=== PATIENT | female | born 1960 | race Caucasian/White ===

== ENCOUNTER 2024-06-08 05:57 | Observation (INO) ==
--- NOTE | 2024-05-24 10:34 | Anesthesiology Consultation ---
Date of Service May 24, 2024 Assessment & Plan (1) Encounter for pre-operative examination: - Per melter helper on 05/24/24: No known infectious disease contacts, current infectious disease symptoms in past 10 days or COVID positive test result in the past 30 days. Chart Review Chart Review: Acceptable Risk for Surgery and Patient NOT seen in Pre Admission Testing History Surgery Operation Date: 06/08/24 09:50 Proposed Procedures p Robotic Laparoscopic Assisted Partial Nehprectomy - Elena - Tony Stahl DO Height/Weight Height: 5 ft 6 in Weight: 56.699 kg Allergies Allergy/AdvReac Type Severity Reaction Status Date / Time almond Allergy Severe TREE Verified 05/24/24 09:43 NUTS-ANAPHYLAXIS cashew nut Allergy Severe Anaphylaxis Verified 05/24/24 09:43 ciprofloxacin [Cipro] Allergy Severe Anaphylaxis Verified 05/24/24 09:43 gluten Allergy Severe celiac Verified 05/24/24 09:43 disease hydromorphone Allergy Severe Anaphylaxis Verified 05/24/24 09:43 Influenza Virus Vaccines Allergy Severe ANAPHYLAXIS Verified 05/24/24 09:43 sumatriptan [From Imitrex] Allergy Severe SOB, hives Verified 05/24/24 09:43 tree nut Allergy Severe tree Verified 05/24/24 09:43 nuts-anaphylaxis wheat Allergy Severe celiac Verified 05/24/24 09:43 disease and also get a topical rash propoxyphene Allergy Mild ? itchy Verified 05/24/24 09:43 codeine Allergy Unknown itchy once Verified 05/24/24 09:43 and has had since with no reaction ergotamine Allergy Unknown Anaphylaxis Verified 05/24/24 09:43 ketorolac [From Toradol] Allergy Unknown Hallucinati Verified 05/24/24 09:43 ng butorphanol AdvReac Unknown DELIRIUM Verified 05/24/24 09:43 Medications Home Medications Medication Instructions Recorded Confirmed Last Taken clonazepam 1 mg tablet 1 mg PO QAM #30 tabs 04/04/24 05/24/24 Unknown levothyroxine 100 mcg tablet 100 mcg PO QAM #90 tabs 05/08/24 05/24/24 Unknown epinephrine 0.3 mg/0.3 mL 0.3 mg IM UD PRN anaphylaxis 05/24/24 05/24/24 Unknown injection, auto-injector [id number] tablet 1 tab PO DAILY 05/24/24 05/24/24 Unknown spironolactone 25 mg tablet 25 - 50 mg PO BID 05/24/24 05/24/24 Unknown Past Medical History Medical History (Updated 05/24/24 @ 10:29 by Alanna Joshi PA-C) Celiac disease (12/11/12) History of colon polyps History of COVID-19 05/2022 History of eating disorder pt weighs self at home/prefers not to be weighed if possible but is okay with if needed. Does not want to know what weight is when weighed. Not active for decades. History of hypertension History of mastitis 02/2024 - has resolved but is still having issues with discharge on occ/follows Dr. Carrillo. History of posttraumatic stress disorder (PTSD) Hypothyroidism sometimes high and sometimes low. IBS (irritable bowel syndrome) Left renal mass Migraines Nonspecific low blood pressure reading always runs a lower blood pressure per pt. Panic disorder controlled at current. Past Family History Family History Grandmother (Maternal) Ovarian cancer Mother Myocardial infarction Other Family history not known due to adoption Past Surgical History Surgical History History of colonoscopy 04/2023 Repeat 5 yrs History of dilatation and curettage x5 History of endoscopy (05/23/24) 05/23/24 [facility] EUS - upcoming ERCP planned 07/2024. History of esophagogastroduodenoscopy (EGD) History of laparoscopic cholecystectomy History of wisdom tooth extraction Hx of breast reduction, elective Hx of tubal ligation Social History Smoking Status: Never smoker Do You Dip or Chew Tobacco: No Hx Alcohol Use: No (very rarely) alcohol intake frequency: holidays/special occasions only Hx Substance Use: No substance use type: does not use Lab Results Anesthesia Preop Results Results Anesthesia Widget: WBC 4.22 K/ul (4.8-10.8) L 05/16/24 Hgb 12.9 g/dl (12.0-16.0) 05/16/24 Hct 38.9 % (37.0-47.0) 05/16/24 Plt 169 K/uL (130-400) 05/16/24 Na 138 mmol/L (136-145) 05/16/24 K 4.7 mmol/L (3.5-5.1) 05/16/24 Cl 103 mmol/L (98-107) 05/16/24 CO2 32 mmol/L (21-32) 05/16/24 BUN 13 mg/dl (6-23) 05/16/24 Creat 0.70 mg/dl (0.6-1.2) 05/16/24 Glucose Level 129 mg/dl (70-99(Fasting)) H 05/16/24 Testing Electrocardiogram Date: 05/16/24 Sinus bradycardia, rate 55 bpm Chest X-Ray Date: 05/05/24 *1view* No acute chest disease. Stress Test Date: 09/29/21 METS 7 MPHR 89% Normal stress echo EF 55-60% Mild mitral regurgitation Other Testing Abdomen pelvis CT 03/20/24 1. Moderate intra and extra hepatic bile duct dilatation. Some of this could be related to the patient's post cholecystectomy state. However, ERCP follow-up recommended to exclude the possibility of an occult stricture/lesion of the distal common bile duct. Of note, the distal common bile duct and pancreatic head are not well visualized on this study due to the motion artifact. 2. A 2.5 cm lesion within the left kidney which is suspicious for a solid renal mass. Dedicated renal ultrasound recommended for confirmation. 3. Moderate fecal retention. 4. No bowel wall thickening or obstruction.
[2024-06-08] MEDS: LR 15ML/HR IV SCH (06:19)
[2024-06-08] MEDS ORDERED: ATROPINE SULFATE 0.1 MG/ML 10ML SYR IV PRN ×2 (06:50→07:54)
[2024-06-08] MEDS ORDERED: ePHEDrine sulfate 50 MG/ML AMP IV PRN ×2 (06:50→07:54)
[2024-06-08] MEDS ORDERED: MIDAZOLAM HCL 1 MG/ML 2ML VIAL ONE (07:03)
[2024-06-08] MEDS ORDERED: fentaNYL citrate PF 100 MCG/2 ML VIAL ONE (07:03)
[2024-06-08] MEDS ORDERED: DEXAMETHASONE SOD INJ 4 MG/ML VIAL ONE (07:03)
[2024-06-08] MEDS ORDERED: LIDOCAINE 2% 2 ML VIAL/AMP(20MG/ML) INFIL ONE (07:03)
[2024-06-08] MEDS ORDERED: ONDANSETRON INJ 2 MG/ML 2 ML VIAL ONE (07:03)
[2024-06-08] MEDS ORDERED: PROPOFOL IV EMULSION 10 MG/ML 20 ML VIAL IV ONE (07:03)
--- NOTE | 2024-06-08 07:05 | History & Physical Bridge Note ---
Date of Service June 08, 2024 History & Physical Bridge Note I have examined the patient, reviewed the History & Physical and in the interval since the performance of the History & Physical I have noted the following changes of clinical significance: no changes noted
[2024-06-08] MEDS ORDERED: SUGAMMADEX SODIUM 200 MG/2 ML VIAL IV ONE (07:06)
[2024-06-08] MEDS ORDERED: ONDANSETRON INJ 2 MG/ML 2 ML VIAL IV PRN (07:54)
[2024-06-08] MEDS ORDERED: fentaNYL citrate PF 100 MCG/2 ML VIAL IV PRN (07:54)
[2024-06-08] MEDS ORDERED: ePHEDrine sulfate 50 MG/5 ML SYR ONE (08:08)
[2024-06-08] MEDS: ceFAZolin 2000MG 2,000 MG/15 ML SYR IV SCH (08:09)
[2024-06-08] MEDS ORDERED: ROCURONIUM BROMIDE 10 MG/ML 5 ML VIAL IV ONE ×2 (08:09→10:05)
[2024-06-08] MEDS ORDERED: KETAMINE HCL 10MG/ML SYR ONE (10:06)
[2024-06-08] MEDS ORDERED: ePHEDrine sulfate 50 MG/ML AMP ONE (10:21)
[2024-06-08] MEDS: TISSEEL FIBRIN SEALANT 10ML TOP ONE (10:37)
[2024-06-08] MEDS: FLOSEAL HEMOSTATIC MATRIX 10ML TOP ONE (10:37)
[2024-06-08] MEDS: SURGICEL ABSORB HEMOSTAT 2IN X 14IN TOP ONE (10:37)
[2024-06-08] MEDS: BUPIVACAINE 0.5 % 5 MG/1 ML MPF 30ML VIAL ONE (10:58)
--- NOTE | 2024-06-08 11:21 | Operative Report ---
PG Post Operative Report Pre & Post Diagnosis Operation Date: 06/08/24 07:30 Pre-Op Diagnosis: Left Renal Mass Post-Op Diagnosis: Left Renal Mass I identified the patient and participated in the time-out.: Yes Procedure Operation Date: 06/08/24 07:30 Actual Procedures p Robotic assisted laparoscopic left partial nephrectomy converted to radical nephrectomy- left(Left) - Tony Stahl DO Surgeon Tony Stahl, II, DO Load Builder Ayan Funes MD. Harriett RUEDA Estimated Blood Loss 450 Findings Consistent with Post-Op Diagnosis Upper pole renal mass on left within the renal hilum with suspicion for malignancy. Mass was removed by partial nephrectomy but renal artery found to be involved with persistent bleeding after closure. Converted to radical nephrectomy due to artery involvement. Specimens 1. Left Renal mass. 2. Left Radical Kidney Drains 18 Fr Carranza catheter. Anesthesia Type General Complications none Disposition Disposition: Recovery Room Indications Patient with enhancing left renal mass. Risk and benefits were discussed at length. Patient elected to undergo robotic assisted laparoscopic partial nephrectomy due to location within the hilum possible radical nephrectomy. Description of Procedure The patient was brought to the operative suite and placed under general endotracheal intubation anesthesia in the supine position. The patient was transferred to the lateral position with the operative side up. At this point, the patient prepped and draped in the usual sterile fashion and a timeout was completed. Preoperative antibiotics of Ancef 2 grams had been given. PEACE's and SCD's were placed on the patient's lower extremities. A catheter was placed using sterile technique. A skin cyst had young noted on the lower portion of the chest. This was covered with a sterile dressing to insure the sterile field remained uncontaminated. With the time out completed the patient was flexed and the skin was marked. The lateral camera port site was anesthetized. A small incision was made into the skin and subcutaneous tissues. A Varess needle was selected and placed. The needle was easily moved and it was irrigated and aspirated without any issues or concerns for placement. Insufflation commenced. Once insufflated, A camera port was placed. The cavity was insufflated to 12-15 mmHG. A laparoscopic camera was placed and the abdominal cavity inspected. No bleeding, injury, or other concerning features were noted. At this point, the skin was marked for port placement and 8mm working ports were placed. The skin was anesthetized down to fascia and an approx 1cm incision was made to place the 2 x 8mm ports. Two 12 mm executive assistant to general counsel ports were also placed in similar fashion under direct visualization. The robot was positioned and docked. The camera was placed and all trocars were positioned under direct visualization. Harriett Montez was integral in port placement, camera utilization, and docking procedure. She remained in sterile attire and then proceeded to assist the remainder of the case. Dr. Ayan Funes was readily available for assistance during tinsley portions of the proceeding procedure. Dr. Funes assumed the porcelain buildup assistant role for the major portion of mass removal, vessel clamping, and closure of the kidney. He assisted with the conversion of the procedure to a radical nephrectomy and utilized the stapling device to ligation of the renal vessels. At this point, I transitioned to the robotic console. The colon was mobilized medially to expose the retroperitoneum and the area assessed. Adhesions were freed to allow mobilization. A small amount of adhesions were noted from the colon and were freed. These were dissected with blunt technique. Cautery was used to assist dissection and control bleeding. The retroperitoneal fat was assessed. The ureter and gonadal vein were identified. The ureter was isolated and dissection was taken superiorly. This was followed to the renal pelvis. The Renal Artery and Vein were then cleaned and exposed. Clamp placement was assessed and good access was achieved. The perirenal fat anterior to the kidney was then dissected. The mass and surrounding tissues were exposed. The kidney was then further mobilized. The ultrasound probe was placed and the mass further examined. The edges were marked. The mass was found to be within the hilum with close proximity to the renal vessels. The main renal artery especially appeared close to the mass location. A superior branch of the renal vein appeared to also go directly to the mass. It did appear concerning that the vessels may be involved with the mass but without further dissection it was impossible to know if they were directly involved. At this point it was decided to move forward with the partial nephrectomy with possible conversion if bleeding or vessel involvement was noted. The Vessels were assessed a final time. 1 x Bulldog clamps were placed on the artery and 1 x Bulldog clamp on the vein. The kidney appropriately blanched. The previously marked margins were used to start the incision into the kidney. The mass was completely excised without evidence of penetrating into the capsule of the mass. A portion of the superior branch of the renal vein had to be incised to excise the mass but no major bleeding was noted. This was closed with a 4-0 Prolene figure of 8 stitch. The base of resection bed was assessed and small vessels were cauterized. The collecting system did appear to be closed. The Renal vein incision was closed without issue. No major bleeding was noted. A barbed suture was selected and the nephrotomy closed. Care was taken to close the collecting system opening. 3-0 Vicryl sutures were then used to close the edges of the elliptical opening. A total of 3 vicryl sutures were used to close and bolster the edges. At this point, the bulldog clamps were removed. Warm ischemia time, in total, was 18 minutes. The kidney was full assessed after removal of clamps. Bleeding was noted. The renal vein was assessed and found to be closed without issue. Bleeding appeared to be coming from the renal artery with the location coming directly off the area excised. A 4-0 prolene stitch was attempted to closed the area and the hemolock clips were also tightened to further close the nephrotomy. With pressure on the vessels. The bleeding was controlled but would immediately begin again. The location and bleeding were concerning for the renal artery and though bleeding was not severe, the attempts to further close the area did not improve the persistent bleeding. After further inspection due to the location and the likely renal artery concern, it was decided to convert the case to radical nephrectomy. Bleeding was not severe but was persistent and did not improved with further closure. Due to location, clipping or ligating a branch of the artery did not appear to be possible. The vessels were isolated. A Endo Stapler with vascular loads were selected and 2 x real were placed accross the renal vein and artery. The vessels were ligated and cut. No bleeding or major problems. No severe bleeding was noted. Surgicel hemostatic agent sheets were placed under the spleen and on the incised vessels. Tisseel and Floseal Hemostatic agents were also placed. Hemostatic agent was also placed on the vessel stumps. No major bleeding or other issues. The excised mass was placed in an endocatch bag for removal. The ureter was then ligated and stapled to completely free the kidney. The entire dissection space was inspected one final time. No bleeding or injuries or areas of concern were noted. No tumor or other concerning features were noted. At this point, the robot was undocked and moved away from the patient. The port sites were all assessed laparoscopically. The endoscopic bag was moved into the lower executive assistant to general counsel port. The 12 and 12 mm port sites were closed with the Miguel Huerta device. The other ports were assessed and no issues observed. The inferior robotic port incision was opened further exposing fascia which was then opened in order to removed the mass within the bag. The the mass removed the fascia was then further opened and the radical kidney was grasped and removed. A running 1-0 PDS suture was used to close fascia. A running 2-0 Vicryl was used to close the subcutaneous tissues. The skin at each site was closed with a stapling device. The area was cleaned and bandages placed on each incision. The patient was cleaned and bandaged. The patient was moved back into the supine position The patient was cleaned, aroused from anesthesia, and transferred to the pacu in stable condition having tolerated the procedure well with no complications. I was present and participated in all aspects of the procedure. MD Marin was integral in the major portion of the procedure as above. MARYBETH Omer was critical in the portions as mentioned above. Will plan to observe postoperatively and monitor. Carranza to be removed in the morning. I attest to the content of the Intraoperative Record and any orders documented therein. Any exceptions are noted below.
[2024-06-08] MEDS: ONDANSETRON INJ 2 MG/ML 2 ML VIAL IV PRN (11:32)
[2024-06-08] MEDS: fentaNYL citrate PF 100 MCG/2 ML VIAL IV PRN (11:35)
[2024-06-08 11:55] LABS: BUN Creatinine Ratio 22.8 (10-20); Calcium 9.6 mg/dl (8.6-10.3); Creatinine Clr Calc Pharmacy 67.3 ml/min; Est GFR (African American) 91.7 ml/min; Est GFR (Non-African American) 79.1 ml/min; Potassium 3.7 mmol/L (3.5-5.1)
[2024-06-08 12:01] LABS: Basophils # (auto) 0.02 K/uL (0.00-0.20); Basophils % (auto) 0.2 %; Hematocrit (blood only) 33.9 % (37.0-47.0); Hemoglobin 11.5 g/dl (12.0-16.0); Immature Granulocytes # (auto) 0.03 K/uL (0.01-0.20); Immature Granulocytes % (auto) 0.4 %; Lymphocytes # (auto) 0.47 K/uL (1.20-3.40); Lymphocytes % (auto) 5.5 %; Mean Corpuscular Hemoglobin 31.3 pg (25.0-34.0); Mean Corpuscular Hgb Conc 33.9 g/dL (32.0-36.0); Mean Corpuscular Volume 92.4 fL (80.0-100.0); Mean Platelet Volume 11.3 fL (9.4-12.4); Monocytes # (auto) 0.19 K/uL (0.11-0.59); Monocytes % (auto) 2.2 %; Neutrophils # (auto) 7.86 K/uL (1.40-6.50); Neutrophils % (auto) 91.7 %; Platelet Count 117 K/uL (130-400); RDW Coefficient of Variation 12.5 % (11.5-14.5); RDW Standard Deviation 42.5 fL (36.4-46.3); Red Blood Count 3.67 M/uL (4.20-5.40); White Blood Count 8.57 K/ul (4.8-10.8)
--- NOTE | 2024-06-08 12:02 | Anesthesiology Progress Note ---
Date of Service June 08, 2024 Anesthesia Post Procedure Vital Signs Vital Signs: Temp Pulse Pulse Resp BP Pulse Ox O2 Del Method 06/08/24 12:00 70 20 104/53 L 100 Room Air 06/08/24 11:50 36.3 C L 60 16 112/57 L 100 Room Air 06/08/24 11:40 63 14 116/59 L 100 Nasal Cannula 06/08/24 11:30 68 20 119/64 100 Nasal Cannula 06/08/24 11:22 36.1 C L 71 14 116/60 100 Nasal Cannula 06/08/24 06:40 36.6 C 64 20 133/76 99 Room Air O2 Flow Rate 06/08/24 12:00 06/08/24 11:50 06/08/24 11:40 2 06/08/24 11:30 4 06/08/24 11:22 4 06/08/24 06:40 Pain Intensity Abdomen: Pain Intensity: 3 Transfer of Care Handoff Completed per policy Notes Mental Status: alert / awake / arousable and participated in evaluation Patient Amnestic to Procedure: Yes Nausea / Vomiting: adequately controlled Pain: adequately controlled Airway Patency, RR, SpO2: stable & adequate BP & HR: stable & adequate Hydration State: stable & adequate Anesthetic Complications: no major complications apparent and Pt Satisfied with anesthetic care
[2024-06-08] MEDS ORDERED: oxyCODONE HCL IR 5 MG TAB (IMMEDIATE RELEASE) PO PRN (12:25)
--- NOTE | 2024-06-08 12:34 | Hospitalist Consultation ---
Date of Consultation June 08, 2024 Assessment & Plan (1) S/p nephrectomy: S/p left radical nephrectomy with Dr. Stahl on 06/08/24 Perioperative antibiotics, pain control, and DVT PPx per the primary team Per review of operative note, EBL was listed as 450 cc; Hgb 11.5 postop; will continue to monitor with a.m. labs Agree with a.m. CBC, BMP; will continue to follow (2) Hypotension: Patient's BP has been soft postop; 106/53 at time of consult Not currently on HTN medications Will plan to hold spironolactone for now until hypotension resolves LR 500mL bolus given Will switch NSS --> LR at 100mL/hr (3) Hypothyroidism: Continue levothyroxine Plan Agree with current medical decision making. Disposition: MedSurg Clear liquid diet for now VTE PX: SCDs/teds Thank you for allowing us to participate in the care of this patient, please reach out with any questions or concerns; we will continue to follow. Supervising Physician Co-Signing Physician Notes Chart reviewed, case discussed with Aleks Goodrich PA-C and I agree with the assessment and plan as above except as otherwise noted Labs and images reviewed 63-year-old female with a history of hypertension, hypothyroidism, PTSD/panic disorder, IBS, who presents for scheduled robot-assisted left partial nephrectomy for left renal mass which was converted to radical left nephrectomy. Operative note reviewed. Masses removed with partial nephrectomy but renal artery found to be involved with persistent bleeding after closure was converted to radical nephrectomy. 4 50 cc estimated blood loss. Doing well with appropriate postoperative pain at bedside. BP ranging 106/531 19/64 postop, borderline hypotension at bedside. She is not tachycardic. No history of CHF. 500 cc LR bolus given and maintenance fluids continued. Hemoglobin trended. Preop hemoglobin 12.9, postop 11.5 no indication for transfusion at time of assessment. Spironolactone held for borderline hypotension. Continue Synthroid. Daily clonazepam continued, history of panic attacks/PTSD and risks of abruptly holding outweigh benefits. Doing well postop. Reports that she has some diffuse pain in the abdomen but this is gradually improving since surgery. On exam abdomen is soft without rebound/involuntary guarding. Answers questions appropriately. Has some irritation of her left eye, no exam no injection irritation or abrasions noted. Offered fluorescein exam with [place] lamp, patient notes this is slowly getting better but if he gets worse will readjust with provider appreciated offered. No other questions or concerns at bedside visitAgree with above. History of Present Illness Reason for Consultation: Postop medical management Requesting Physician: Tony Stahl II, DO Attending Physician: Tony Stahl II, DO History of Present Illness Janell is a 63-year-old female with PMH of HTN, hypothyroidism, PTSD, panic disorder, IBS, and left renal mass. She presented for a left partial nephrectomy converted to radical nephrectomy with Dr. Tony Stahl on 06/08. Per review of operative report, EBL was listed as 450 cc, general anesthesia was used, and there were no reported intraoperative complications. Renal mass was removed for suspected malignancy. Per review of patient's vitals postop she has been mildly hypotensive around 106/53 at time of consult. At time of consult, patient does endorse both generalized abdominal pain and lower back pain. She says the abdominal pain is mainly below her umbilicus but also around her laparoscopic incision sites. She is she describes the pain as both sharp and dull, and is a constant pain that is around 6/10. The pain radiates to her lower back. She has not been up since the surgery, so she has not tried eating or drinking yet. She does not use supplemental oxygen at baseline. No CPAP at night. She denies smoking, tobacco use, or recent alcohol use. Patient took all of her regular morning medications today; no recent change in medications. She takes spironolactone as an engine elzbieta for acne and to promote hair growth. She has no new concerns at this time. ROS: Patient endorses generalized abdominal pain, lower back pain, dry cough, and sore throat. Patient denies fever, chills, sweats, dizziness, lightheadedness, headache, chest pain, chest pressure, SOB, pleuritic CP, N/V/D, saddle anesthesia, or numbness or tingling going down the legs. Allergies Allergy/AdvReac Type Severity Reaction Status Date / Time almond Allergy Severe TREE Verified 06/08/24 06:15 NUTS-ANAPHYLAXIS cashew nut Allergy Severe Anaphylaxis Verified 06/08/24 06:15 ciprofloxacin [Cipro] Allergy Severe Anaphylaxis Verified 06/08/24 06:15 gluten Allergy Severe celiac Verified 06/08/24 06:15 disease hydromorphone Allergy Severe Anaphylaxis Verified 06/08/24 06:15 Influenza Virus Vaccines Allergy Severe ANAPHYLAXIS Verified 06/08/24 06:15 sumatriptan [From Imitrex] Allergy Severe SOB, hives Verified 06/08/24 06:15 tree nut Allergy Severe tree Verified 06/08/24 06:15 nuts-anaphylaxis wheat Allergy Severe celiac Verified 06/08/24 06:15 disease and also get a topical rash propoxyphene Allergy Mild ? itchy Verified 06/08/24 06:15 codeine Allergy Unknown itchy once Verified 06/08/24 06:15 and has had since with no reaction ergotamine Allergy Unknown Anaphylaxis Verified 06/08/24 06:15 ketorolac [From Toradol] Allergy Unknown Hallucinati Verified 06/08/24 06:15 ng butorphanol AdvReac Unknown DELIRIUM Verified 06/08/24 06:15 Home Medications Medication Instructions Recorded Confirmed Type clonazepam 1 mg tablet 1 mg PO QAM #30 tabs 04/04/24 06/08/24 Rx levothyroxine 100 mcg tablet 100 mcg PO QAM #90 tabs 05/08/24 06/08/24 Rx epinephrine 0.3 mg/0.3 mL 0.3 mg IM UD PRN anaphylaxis 05/24/24 06/08/24 History injection, auto-injector akpbnigvlfla-tiftnzrj-apjejc tablet 1 tab PO DAILY 05/24/24 06/08/24 History spironolactone 25 mg tablet 25 - 50 mg PO BID 05/24/24 06/08/24 History Patient History Medical History (Updated 06/08/24 @ 12:35 by Aleks Goodrich PA-C) Panic disorder controlled at current. History of posttraumatic stress disorder (PTSD) Migraines Nonspecific low blood pressure reading always runs a lower blood pressure per pt. History of hypertension History of mastitis 02/2024 - has resolved but is still having issues with discharge on occ/follows Dr. Carrillo. IBS (irritable bowel syndrome) Left renal mass History of eating disorder pt weighs self at home/prefers not to be weighed if possible but is okay with if needed. Does not want to know what weight is when weighed. Not active for decades. Hypothyroidism sometimes high and sometimes low. History of colon polyps Celiac disease (12/11/12) History of COVID-19 05/2022 Surgical History History of laparoscopic cholecystectomy History of endoscopy (05/23/24) 05/23/24 [facility] - upcoming ERCP planned 07/2024. History of dilatation and curettage x5 History of colonoscopy 04/2023 Repeat 5 yrs History of esophagogastroduodenoscopy (EGD) History of wisdom tooth extraction Hx of breast reduction, elective Hx of tubal ligation Family History Grandmother (Maternal) Ovarian cancer Mother Myocardial infarction Other Family history not known due to adoption Social History Smoking Status: Never smoker Second Hand Exposure: No; Do You Dip or Chew Tobacco: No; Hx Alcohol Use: No Hx Substance Use: No Preferred Language: Mongolian Communication Ability: Effective Visual Impairment: Partially Limited Hearing Ability: Normal Brass Polisher Required: No Beliefs That Will Affect Care: None marital status: Current Living Situation: Spouse and Parent Current Living Situation Comment: lives with and mom (is primary caregiver for 90yr old mom) current occupational status: employed 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 How many Children do You have: 3 Other Information That Helps Us Care for You: No Feels Safe at Home: Yes Childhood Exposure to Second-Hand Smoke: Yes Diet: gluten free and vegan caffeine: Yes Dental Care, Regularly: Yes Physical Activity Frequency: Daily Seatbelt Use: always Sunscreen Use: Yes Assistive Devices: Other Assistive Devices Comment: reading glasses Review of Systems Review of Systems: See HPI above Physical Exam Physical Exam: General: Mild physical distress secondary to abdominal and lower back pain; pleasant affect; non-toxic appearing; well-nourished; cooperative; SpO2 99% on RA HEENT: normocephalic, atraumatic; no scleral icterus; PERRLA; vision and hearing grossly intact Neck: supple; no lymphadenopathy; trachea midline Skin: warm, dry without signs of tenting; no cyanosis; no rashes, bruising, lesions, or erythema noted CV: chest wall NTP; RRR; S1/S2 normal; no murmurs/rubs/gallops; pulses intact and symmetric at radial, DP, and PT Lungs: no acute respiratory distress; symmetrical chest wall expansion; clear breath sounds across all lung murphy w/o adventitious sounds; no wheezing ABD: Laparoscopic incision sites are cleanly dressed without signs of drainage, erythema, or infection present; her abdomen is mildly TTP around the incision sites; flanks are NTP; BS present; no rebound/guarding; no distention Back: Lower spine is mildly TTP; negative CVA tenderness, or lower back tenderness to palpation : Carranza draining clear yellow urine MSK: no tics or fasciculations; no edema noted in the LEs b/l, nonerythematous; patient demonstrates ability to wiggle toes bilaterally Neuro: A&Ox3; normal mood and affect; fluent speech; no focal deficits; sensation grossly intact in the LEs b/l Results & Data Results & Data Vital Signs (Past 12 Hours) Vital Signs Temp Pulse Pulse Resp BP Pulse Ox O2 Del Method 06/08/24 12:10 72 20 106/53 L 100 Room Air 06/08/24 12:00 70 20 104/53 L 100 Room Air 06/08/24 11:50 36.3 C L 60 16 112/57 L 100 Room Air 06/08/24 11:40 63 14 116/59 L 100 Nasal Cannula 06/08/24 11:30 68 20 119/64 100 Nasal Cannula 06/08/24 11:22 36.1 C L 71 14 116/60 100 Nasal Cannula 06/08/24 06:40 36.6 C 64 20 133/76 99 Room Air O2 Flow Rate 06/08/24 12:10 06/08/24 12:00 06/08/24 11:50 06/08/24 11:40 2 06/08/24 11:30 4 06/08/24 11:22 4 06/08/24 06:40 Laboratory Results Abnormal lab results 06/08/24 Range/Units 11:24 RBC 3.67 L (4.20-5.40) M/uL Hgb 11.5 L (12.0-16.0) g/dl Hct 33.9 L (37.0-47.0) % Plt Count 117 L (130-400) K/uL Neut # (Auto) 7.86 H (1.40-6.50) K/uL Lymph # (Auto) 0.47 L (1.20-3.40) K/uL BUN/Creatinine Ratio 22.8 H (10-20) Glucose 156 H (70-99(Fasting)) mg/dl PG Care Time/CCT Total # of Minutes Spent Total Time Spent with Patient: Total time spent is greater than 50% in coordination of care (as documented) at patient's floor/unit and/or counseling patient: [place] [address] IN/OBS CONSULT LVL 3,45M Patient Type New Medical Decision Making Moderate Complexity Diagnoses S/p nephrectomy Z90.5 Hypotension I95.9 Hypothyroidism E03.9
[2024-06-08] MEDS: SODIUM CHLORIDE 0.9% 1,000 ML IV SCH (12:43)
[2024-06-08] MEDS ORDERED: EPINEPHrine INJ 1 MG/ML AMP IM PRN (12:48)
[2024-06-08] MEDS: LACTATED RINGER'S 500 ML IV ONE (13:24)
[2024-06-08] MEDS: oxyCODONE HCL IR 5 MG TAB (IMMEDIATE RELEASE) PO PRN (13:30)
[2024-06-08] MEDS: LACTATED RINGER'S 1,000 ML IV SCH (14:10)
[2024-06-08] MEDS: ACETAMINOPHEN 325 MG TAB PO SCH (14:21)
[2024-06-08] MEDS: ONDANSETRON INJ 2 MG/ML 2 ML VIAL IV STA (16:04)
[2024-06-08] MEDS: MoRPHine SULFATE 2 MG/ML CARP IV PRN (16:20)
[2024-06-08] MEDS: ceFAZolin 1000MG 1,000 MG/7.5 ML SYR IV SCH (17:06)
[2024-06-08] MEDS: ONDANSETRON 4 MG OD TAB PO PRN (20:55)
[2024-06-08] MEDS ORDERED: SPIRONOLACTONE 25 MG TAB PO SCH (21:00)
[2024-06-08] MEDS: DOCUSATE SODIUM 100 MG CAP PO SCH (21:39)
[2024-06-08] MEDS ORDERED: Nursing to Pharmacy Communication SCH (23:15)
[2024-06-09] MEDS ORDERED: SPIRONOLACTONE 25 MG TAB PO SCH (09:00)
[2024-06-09] MEDS: clonazePAM 1 MG TAB PO SCH (14:46)
[2024-06-09] MEDS: LEVOTHYROXINE SODIUM 100 MCG TABLET PO SCH (14:46)
[2024-06-09] MEDS: METOCLOPRAMIDE HCL INJ 5 MG/ML 2 ML VIAL IV ONE (14:46)
[2024-06-09 18:36] LABS: Albumin Globulin Ratio 1.7 (0.9-2); Albumin Level 3.3 gm/dl (3.4-5.0); BUN Creatinine Ratio 19.5 (10-20); Calcium 9.4 mg/dl (8.6-10.3); Creatinine Clr Calc Pharmacy 47.2 ml/min; Est GFR (African American) 59.5 ml/min; Est GFR (Non-African American) 51.3 ml/min; Total Protein 5.3 gm/dl (6.0-8.3)
[2024-06-09] MEDS: HEPARIN SOD 5,000 UNIT/0.5 ML VIAL SC SCH (21:08)
[2024-06-09] MEDS: MoRPHine SULFATE 4 MG/ML 1 ML CARP\\VIAL IV PRN (21:38)
[2024-06-10 01:02] LABS: Basophils # (auto) 0.01 K/uL (0.00-0.20); Basophils % (auto) 0.1 %; Hematocrit (blood only) 30.2 % (37.0-47.0); Hemoglobin 9.5 g/dl (12.0-16.0); Immature Granulocytes # (auto) 0.05 K/uL (0.01-0.20); Immature Granulocytes % (auto) 0.4 %; Lymphocytes % (auto) 5.3 %; Mean Corpuscular Hemoglobin 31.1 pg (25.0-34.0); Mean Corpuscular Hgb Conc 31.5 g/dL (32.0-36.0); Mean Platelet Volume 12.3 fL (9.4-12.4); Monocytes # (auto) 0.89 K/uL (0.11-0.59); Monocytes % (auto) 6.8 %; Neutrophils # (auto) 11.48 K/uL (1.40-6.50); Neutrophils % (auto) 87.4 %; Platelet Count 133 K/uL (130-400); RDW Coefficient of Variation 12.9 % (11.5-14.5); RDW Standard Deviation 46.3 fL (36.4-46.3); Red Blood Count 3.05 M/uL (4.20-5.40); White Blood Count 13.13 K/ul (4.8-10.8)
[2024-06-10 06:23] LABS: BUN Creatinine Ratio 18.3 (10-20); Calcium 9.2 mg/dl (8.6-10.3); Creatinine Clr Calc Pharmacy 48.9 ml/min; Est GFR (African American) 62.1 ml/min; Est GFR (Non-African American) 53.6 ml/min; Potassium 4.1 mmol/L (3.5-5.1)
[2024-06-10 06:49] LABS: Basophils # (auto) 0.01 K/uL (0.00-0.20); Basophils % (auto) 0.1 %; Eosinophils # (auto) 0.01 K/uL (0.00-0.50); Eosinophils % (auto) 0.1 %; Hematocrit (blood only) 28.9 % (37.0-47.0); Hemoglobin 9.5 g/dl (12.0-16.0); Immature Granulocytes # (auto) 0.01 K/uL (0.01-0.20); Immature Granulocytes % (auto) 0.1 %; Lymphocytes # (auto) 1.17 K/uL (1.20-3.40); Lymphocytes % (auto) 17.2 %; Mean Corpuscular Hgb Conc 32.9 g/dL (32.0-36.0); Mean Corpuscular Volume 94.4 fL (80.0-100.0); Mean Platelet Volume 12.4 fL (9.4-12.4); Monocytes # (auto) 0.56 K/uL (0.11-0.59); Monocytes % (auto) 8.2 %; Neutrophils # (auto) 5.04 K/uL (1.40-6.50); Neutrophils % (auto) 74.3 %; Platelet Count 101 K/uL (130-400); RDW Coefficient of Variation 12.8 % (11.5-14.5); RDW Standard Deviation 44.1 fL (36.4-46.3); Red Blood Count 3.06 M/uL (4.20-5.40)
--- NOTE | 2024-06-10 06:51 | Urology Progress Note ---
Date of Service June 10, 2024 Assessment & Plan (1) Left renal mass: (2) S/p nephrectomy: Plan Patient postop day 2 status post left radical nephrectomy. Patient had small renal mass involving the renal hilum. Patient had begun his robot-assisted laparoscopic partial nephrectomy. Mass was able to be removed however due to the close proximity involvement near the renal vessels especially the renal artery there was concern about small but persistent bleeding after closure. Due to the ongoing issues and concern for issues related to the location of the mass the patient was converted to a radical nephrectomy. Patient has been healing. Vitals have remained stable. Has been dealing with some mild borderline hypotension. Otherwise vitals are stable. No fever. Oxygen saturation was 90% on room air. Patient's labs from today were reviewed. White count 6.80. Creatinine 1.09. Plan to continue with observation. Patient is slowly improving. Has not had return of bowel function. Encourage ambulation and activity. Encourage patient to utilize incentive spirometer. Encourage patient to slowly increase diet with small frequent meals. Admission and Anticipated Discharge Date Admission Date: June 08, 2024 Subjective Postop from urologic surgery. Patient has been tolerating well, but is having some pain and discomfort. Incisions have been mild sore. Having some abdominal distension/gas pains. Catheter was removed yesterday. Has not had severe pain or uncontrollable pain. Patient has been ambulating. Has not had bowel movement or major change. No new nausea or vomiting. Had tolerated anesthesia without major problems Tolerated liquid diet postoperatively. Was able to advance as tolerated Review of Systems Review of Systems: All systems reviewed & are unremarkable except as noted in HPI & below Physical Exam Physical Exam: General: Alert in no acute distress. HEENT: Normocephalic Atraumatic. Inspection normal. Cranial Nerves 2-12 Gr ossly intact. Normal inspection of face. Normal inspection of neck. Psychologic: Normal affect. Respiratory: Nonlabored. No use of accessory muscles. No tachypnea or dyspnea. Cardiovascular: No tachycardia Skin: [place] and Dry. No rashes or visible lesions. Extremities/Lymphatics: No edema Abdomen: Appropriately tender. Mild distended. No rebound or guarding. Wound: Clean, dry, covered. Results & Data Vital Signs (Past 12 Hours) Vital Signs Temp Pulse Resp BP Pulse Ox O2 Del Method 06/09/24 21:57 36.8 C 55 L 15 104/60 90 Room Air PG Care Time/CCT Total # of Minutes Spent Total Time Spent with Patient: Total time spent is greater than 50% in coordination of care (as documented) at patient's floor/unit and/or counseling patient: Coding Level of Care Code 02509 SUB INP/OBS CARE 3/50MIN Diagnoses Left renal mass N28.89 S/p nephrectomy Z90.5
[2024-06-10] MEDS: POLYETHYLENE (MIRALAX) 17 GM PACK PO SCH (11:24)
--- NOTE | 2024-06-10 17:15 | Hospitalist Progress Note ---
Date of Service June 10, 2024 Assessment & Plan (1) S/p nephrectomy: Plan RCC s/p radical nephrectomy Management per Urology Constipation Bowel regimen - added miralx Hypothyroid - cont Levothyroxine OOB as tolerated DVT Px Admission and Anticipated Discharge Date Admission Date: June 08, 2024 Subjective pain controlled, nausea better but still poor appetite, no BM yet Physical Exam Physical Exam: Appears fatigued bvut comfortable, non toxic Lungs clear to auscultation bilaterally Heart RRR PA Soft, postop tenderness, ND, BS+ Skin no rash Results & Data Results & Data Vital Signs (Past 12 Hours) Vital Signs Temp Pulse Resp BP Pulse Ox O2 Del Method 06/10/24 14:35 36.7 C 59 L 17 111/67 93 Room Air 06/10/24 07:52 36.7 C 57 L 16 123/72 96 Room Air Reviewed PG Care Time/CCT Total # of Minutes Spent Total Time Spent with Patient: Total time spent is greater than 50% in coordination of care (as documented) at patient's floor/unit and/or counseling patient: Coding Level of Care Code 64513 SUB INP/OBS CARE 2/35MIN Diagnoses S/p nephrectomy Z90.5
[2024-06-11 05:55] LABS: Basophils # (auto) 0.03 K/uL (0.00-0.20); Basophils % (auto) 0.6 %; Eosinophils # (auto) 0.05 K/uL (0.00-0.50); Eosinophils % (auto) 0.9 %; Hematocrit (blood only) 30.3 % (37.0-47.0); Immature Granulocytes # (auto) 0.01 K/uL (0.01-0.20); Immature Granulocytes % (auto) 0.2 %; Lymphocytes # (auto) 0.87 K/uL (1.20-3.40); Lymphocytes % (auto) 16.1 %; Mean Corpuscular Hemoglobin 31.5 pg (25.0-34.0); Mean Corpuscular Volume 95.6 fL (80.0-100.0); Mean Platelet Volume 12.3 fL (9.4-12.4); Monocytes # (auto) 0.47 K/uL (0.11-0.59); Monocytes % (auto) 8.7 %; Neutrophils # (auto) 3.99 K/uL (1.40-6.50); Neutrophils % (auto) 73.5 %; Platelet Count 102 K/uL (130-400); RDW Coefficient of Variation 12.8 % (11.5-14.5); RDW Standard Deviation 45.1 fL (36.4-46.3); Red Blood Count 3.17 M/uL (4.20-5.40); White Blood Count 5.42 K/ul (4.8-10.8)
[2024-06-11 06:06] LABS: BUN Creatinine Ratio 15.8 (10-20); Calcium 9.6 mg/dl (8.6-10.3); Creatinine Clr Calc Pharmacy 52.8 ml/min; Est GFR (African American) 68.1 ml/min; Est GFR (Non-African American) 58.8 ml/min; Potassium 4.5 mmol/L (3.5-5.1)
--- NOTE | 2024-06-11 13:11 | Hospitalist Progress Note ---
Date of Service June 11, 2024 Assessment & Plan (1) S/p nephrectomy: Plan RCC s/p radical nephrectomy Management per Urology Constipation Bowel regimen - added miralx, continue Hypothyroid - cont Levothyroxine OOB as tolerated DVT Px Discharge plan per Urology Admission and Anticipated Discharge Date Admission Date: June 08, 2024 Subjective pain controlled,looks and feels better but still poor appetite, no BM yet but passing flatus, has been OOB Physical Exam Physical Exam: comfortable, non toxic Lungs clear to auscultation bilaterally Heart RRR PA Soft, postop tenderness, ND, BS+ Skin no rash AAO#3, Non focal Results & Data Results & Data Vital Signs (Past 12 Hours) Vital Signs Temp Pulse Resp BP BP Pulse Ox O2 Del Method 06/11/24 08:22 36.9 C 67 16 122/70 122/70 96 Room Air PG Care Time/CCT Total # of Minutes Spent Total Time Spent with Patient: Total time spent is greater than 50% in coordination of care (as documented) at patient's floor/unit and/or counseling patient: Coding Level of Care Code 55557 SUB INP/OBS CARE 2/35MIN Diagnoses S/p nephrectomy Z90.5
--- NOTE | 2024-06-11 14:06 | Urology Progress Note ---
Date of Service June 11, 2024 Assessment & Plan (1) Left renal mass: (2) S/p nephrectomy: Plan Patient postop day 3 status post left radical nephrectomy. Patient had small renal mass involving the renal hilum. Patient had begun his robot-assisted laparoscopic partial nephrectomy. Mass was able to be removed however due to the close proximity involvement near the renal vessels especially the renal artery there was concern about small but persistent bleeding after closure. Due to the ongoing issues and concern for issues related to the location of the mass the patient was converted to a radical nephrectomy. Patient has been healing. Vitals have remained stable. Patient's labs continue to improve with creatinine at 1.01. Hemoglobin up to 10. Patient would like to move forward with discharge. Patient is slowly improving. Has not had return of bowel function. Does have flatus. Encourage ambulation and activity. Encourage patient to utilize incentive spirometer. Encourage patient to slowly increase diet with small frequent meals. Plan for discharge with follow-up in the office for staple removal and likely follow-up a week later for pathology Admission and Anticipated Discharge Date Admission Date: June 08, 2024 Subjective Postop from urologic surgery. Patient has been tolerating well, but is having some pain and discomfort. Incisions have been mild sore. Having some abdominal distension/gas pains. Patient is passing gas at this point but has yet to have bowel movement. Has not had severe pain or uncontrollable pain. Patient has been ambulating. Has not had bowel movement or major change. No new nausea or vomiting. Had tolerated anesthesia without major problems Tolerating small amounts of diet. Review of Systems Review of Systems: All systems reviewed & are unremarkable except as noted in HPI & below Physical Exam Physical Exam: General: Alert in no acute distress. HEENT: Normocephalic Atraumatic. Inspection normal. Cranial Nerves 2-12 Grossly intact. Normal inspection of face. Normal inspection of neck. Psychologic: Normal affect. Respiratory: Nonlabored. No use of accessory muscles. No tachypnea or dyspnea. Cardiovascular: No tachycardia Skin: [place] and Dry. No rashes or visible lesions. Extremities/Lymphatics: No edema Abdomen: Appropriately tender. Mild distended. No rebound or guarding. Wound: Clean, dry, covered. Results & Data Vital Signs (Past 12 Hours) Vital Signs Temp Pulse Resp BP BP Pulse Ox O2 Del Method 07/21/24 08:22 36.9 C 67 16 122/70 122/70 96 Room Air PG Care Time/CCT Total # of Minutes Spent Total Time Spent with Patient: Total time spent is greater than 50% in coordination of care (as documented) at patient's floor/unit and/or counseling patient: Coding Level of Care Code 63296 SUB INP/OBS CARE 2/35MIN Diagnoses Left renal mass N28.89 S/p nephrectomy Z90.5
--- NOTE | 2024-06-11 14:11 | Discharge Summary ---
Date of Service June 11, 2024 Admission HPI Per Admitting Provider See H&P Admission Exam Per Admitting Provider See H&P Principal Diagnosis Renal mass Discharge Exam General: Alert in no acute distress. HEENT: Normocephalic Atraumatic. Inspection normal. Cranial Nerves 2-12 Grossly intact. Normal inspection of face. Normal inspection of neck. Psychologic: Normal affect. Respiratory: Nonlabored. No use of accessory muscles. No tachypnea or dyspnea. Cardiovascular: No tachycardia Skin: Mcgill and Dry. No rashes or visible lesions. Extremities/Lymphatics: No edema Abdomen: Appropriately tender. Mild distended. No rebound or guarding. Wound: Clean, dry, covered. Discharge Data Allergies Allergy/AdvReac Type Severity Reaction Status Date / Time almond Allergy Severe TREE Verified 06/08/24 06:15 NUTS-ANAPHYLAXIS cashew nut Allergy Severe Anaphylaxis Verified 06/08/24 06:15 ciprofloxacin [Cipro] Allergy Severe Anaphylaxis Verified 06/08/24 06:15 gluten Allergy Severe celiac Verified 06/08/24 06:15 disease hydromorphone Allergy Severe Anaphylaxis Verified 06/08/24 06:15 Influenza Virus Vaccines Allergy Severe ANAPHYLAXIS Verified 06/08/24 06:15 sumatriptan [From Imitrex] Allergy Severe SOB, hives Verified 06/08/24 06:15 tree nut Allergy Severe tree Verified 06/08/24 06:15 nuts-anaphylaxis wheat Allergy Severe celiac Verified 06/08/24 06:15 disease and also get a topical rash propoxyphene Allergy Mild ? itchy Verified 06/08/24 06:15 codeine Allergy Unknown itchy once Verified 06/08/24 06:15 and has had since with no reaction ergotamine Allergy Unknown Anaphylaxis Verified 06/08/24 06:15 ketorolac [From Toradol] Allergy Unknown Hallucinati Verified 06/08/24 06:15 ng butorphanol AdvReac Unknown DELIRIUM Verified 06/08/24 06:15 Consultations 06/08/24 12:25 Consult Hospitalist Routine Procedures Performed Operation Date: 06/08/24 07:30 Actual Procedures p Robotic assisted laparoscopic left partial nephrectomy converted to radical nephrectomy- left(Left) - Tony Stahl, Hospital Course (1) Left renal mass: (2) S/p nephrectomy: Plan Patient postop day 3 status post left radical nephrectomy. Patient had small renal mass involving the renal hilum. Patient had begun his robot-assisted laparoscopic partial nephrectomy. Mass was able to be removed however due to the close proximity involvement near the renal vessels especially the renal artery there was concern about small but persistent bleeding after closure. Due to the ongoing issues and concern for issues related to the location of the mass the patient was converted to a radical nephrectomy. Patient has been healing. Vitals have remained stable. Patient's labs continue to improve with creatinine at 1.01. Hemoglobin up to 10. Patient would like to move forward with discharge. Patient is slowly improving. Has not had return of bowel function. Does have flatus. Encourage ambulation and activity. Encourage patient to utilize incentive spirometer. Encourage patient to slowly increase diet with small frequent meals. Plan for discharge with follow-up in the office for staple removal and likely follow-up a week later for pathology Total Time Total Time Spent Total Time Spent (In Minutes): 10 minutes Total Time Includes: Examination of the Patient, Discharge Planning, Medication Reconciliation and Communication With Other Providers Discharge Plan Discharge Items Patient Disposition: Home - Self-Care Reason For Visit: Left Renal Mass Discharge Diagnosis: Same Activity: Per Instructions section Activity Comment: Increase slowly. Avoid lifting over 50 pounds. Lifting: No more than 50 pounds Bathing Comment: Okay to shower today. Okay to wash on the incisions. No soaking or baths Exercise/Sports: Gradually increase as tolerated Non-emergency contact: Urologist Call non-emergency contact if: you have any medication questions, your symptoms worsen, your pain is not controlled, your pain is worsening, your pain is unusual for you, your pain is concerning for you, you have a fever, your temperature is above 101.5, your wound has increased redness, your wound has increased drainage and your wound pain has increased Follow-up/Referrals: Jeison Carrillo, DO [Primary Care Provider] - Diet: Regular Addtl Attending Provider Instructions: Please take all medications as prescribed as needed and keep all follow-ups as scheduled. Please call our office at [phone] with any questions, concerns or need to reschedule appointments for any reason. We are happy to assist you. What to expect after your surgery: You will probably see a crust of blood or yellowish coating over wounds. Do not remove scabs. Its OK if they fall off on their own. May have some bruising or swelling on the flank or near incisions. Michaela will remain in place until removed in the office You may experience pain with urination for the first few days. Take pain medicine if you feel you need it. External healing takes about 2-3 weeks. When to call [facility] at [phone] (or report to the ED if it is after hours): Fever of 101F or higher Discharge that is heavy, a greenish color, or lasts more than a week Bleeding that isnt controlled by applying gentle pressure Inability to urinate Recommend utilizing Colace and/or MiraLAX for management of bowels. May take a few days for bowel movements to return. Pending Studies at Discharge: No Stand-Alone Forms: My [facility], Smoking Cessation Medications and DC Order Prescriptions: New oxycodone-acetaminophen [Percocet] 7.5-325 mg tablet 1 tab PO Q8H PRN (Reason: pain) Qty: 15 0RF Continued clonazepam 1 mg tablet 1 mg PO QAM Qty: 30 2RF levothyroxine 100 mcg tablet 100 mcg PO QAM Qty: 90 0RF spironolactone 25 mg tablet 25 - 50 mg PO BID Patient Comments: 25 mg morning and 50 mg in the evening. Not for blood pressure. Rx Instructions: 25 mg orally take one tab in the morning and two tabs at night; epinephrine 0.3 mg/0.3 mL auto-injector 0.3 mg IM UD PRN (Reason: anaphylaxis) Patient Comments: always with me Centrum Silver Tablet 1 tab PO DAILY Patient Comments: when i think of it Discharge Orders: Discharge Order (Routine); Ordered 06/11/24 Ordered By: Tony Stahl Admission Data Admit Date/Time: 06/08/24 11:08 Attending Provider: Tony Stahl Admit Provider: Tony Stahl Primary Care Provider: Jeison Carrillo Other Providers: [employer]; Claudia Worley Coding Level of Care Code 70284 IN/OBS DISCH 30 MIN/LESS Diagnoses Left renal mass N28.89 S/p nephrectomy Z90.5
== END 2024-06-11 16:15 | disposition home health service (06) ==
LOC: ASU 05:57 → 3E 11:08 → INTOOBSV 11:08

== ENCOUNTER 2025-09-19 12:19 | Observation (INO) ==
--- NOTE | 2025-09-19 13:18 | Emergency Department Note ---
Impression & Plan Urinary tract infection, Pyelonephritis ED Provider Note CHIEF COMPLAINT: Urinary tract infection HISTORY OF PRESENTING ILLNESS: The patient is a pleasant, 65-year-old female who arrives to the emergency department for evaluation of urinary tract infection. The patient reports she has been treated with 2 oral antibiotics, without success. She states she has a solitary kidney, and contacted her oil speculator. She states Dr. Hicks recommended coming to the hospital for evaluation. She reports fevers, nausea, and slight vomiting. She does report lower abdominal pain on the right. She is currently afebrile, with stable vital signs. REVIEW OF SYSTEMS: See HPI for pertinent positives and pertinent negatives. ALLERGIES: See below MEDICATIONS: See below PAST MEDICAL HISTORY: See below PHYSICAL EXAM: VITALS: Vitals are noted on the nurse's note and reviewed by myself. Vital signs stable. GENERAL: 65-year-old female, in no acute distress, nondiaphoretic, well- developed well-nourished. SKIN: The skin was without rashes, erythema, edema, or bruising. HEART: Regular rate and rhythm without murmurs gallops or rubs. LUNGS: Clear to auscultation bilaterally without wheezes, rales or rhonchi. No retractions or accessory muscle use. ABDOMEN: Positive bowel sounds x 4. Soft, without masses or organomegaly. Positive right CVA TTP. Right lower quadrant tenderness to palpation. No rebound tenderness or guarding. MUSCULOSKELETAL: No muscle atrophy, erythema, or edema noted. Normal gait. Strength 5/5 throughout. NEURO: Patient was alert and oriented to person place and time. No focal neurological deficits. DIFFERENTIAL DIAGNOSIS: Urinary tract infection, pyelonephritis, infections, obstruction, renal colic, nephrolithiasis, as well as other pathologies. ED COURSE AND MEDICAL DECISION MAKING: MEDICATIONS GIVEN: 1 L NSS bolus, 1 g IV Rocephin. INTERPRETATION OF LABS: I interpreted the labs with full lab results as below in the lab section of this note. Pertinent lab results discussed in the MDM section below. INTERPRETATION OF IMAGING: Imaging studies were interpreted by myself and read by radiology as per the imaging section of this note. CHRONIC MEDICAL/SOCIAL CONDITIONS AFFECTING CARE: Solitary kidney, CKD stage III CONSULTATIONS: Dr. Hicks, nephrology MDM SUMMARY: The patient is a pleasant, 65-year-old female who arrives to the emergency department for evaluation of the above-stated complaint. Saline lock was established, lab work was obtained. CBC shows no leukocytosis, no anemia. CMP shows BUN and creatinine at patient baseline. Otherwise unremarkable. Urinalysis 1+ blood, 3+ leukocyte esterase, greater than 50 WBCs, no epithelial cells, and negative bacteria, negative nitrates. Renal ultrasound was obtained which per the robotic maintenance technician's note shows no hydronephrosis, no obstruction, however there is debris in the bladder. Patient was provided IV fluids, and IV Rocephin. [facility]. Dr. Cooper agreed to evaluate and accept the patient for admission. Please refer to their documentation for further patient workup and care. DIAGNOSIS: Pyelonephritis, UTI The chart was completed utilizing [employer] voice recognition software. Grammatical errors, random word insertions, pronoun errors, and incomplete sentences are an occasional consequence of this system due to software limitations, ambient noise, and hardware issues. Any formal questions or concerns about the content, text, or information contained within the body of this dictation should be directly addressed to the provider for clarification. Past Med/Surg History Problem List (Updated 09/19/25 @ 16:30 by MARYBETH Carvalho) Pyelonephritis (Acute) Urinary tract infection (Acute) Dysuria Vitamin D deficiency Abdominal pain Fractured tooth Dental fistula Facial abscess Infection of oral mucosa CKD stage 3a, GFR 45-59 ml/min Solitary kidney, acquired S/p nephrectomy Mastitis 02/2024 IBS (irritable bowel syndrome) Panic disorder PTSD (post-traumatic stress disorder) HTN (hypertension) Hypothyroidism Medical History Left renal mass Panic disorder controlled at current. History of posttraumatic stress disorder (PTSD) Migraines Nonspecific low blood pressure reading always runs a lower blood pressure per pt. History of hypertension History of mastitis 02/2024 - has resolved but is still having issues with discharge on occ/follows Dr. Carrillo. IBS (irritable bowel syndrome) Left renal mass History of eating disorder pt weighs self at home/prefers not to be weighed if possible but is okay with if needed. Does not want to know what weight is when weighed. Not active for decades. Hypothyroidism sometimes high and sometimes low. History of colon polyps Celiac disease (12/11/12) History of COVID-19 05/2022 Surgical History History of radical nephrectomy LEFT - June 08, 2024 - DANI Dunn History of laparoscopic cholecystectomy History of endoscopy (05/23/24) 05/23/24 [facility] E[facility] - upcoming ERCP planned 07/2024. History of dilatation and curettage x5 History of colonoscopy 04/2023 Repeat 5 yrs History of esophagogastroduodenoscopy (EGD) History of wisdom tooth extraction Hx of breast reduction, elective Hx of tubal ligation Family History Grandmother (Maternal) Ovarian cancer Mother Myocardial infarction Other Family history not known due to adoption Social History Smoking Status: Never smoker Second Hand Exposure: No; Do You Dip or Chew Tobacco: No; Hx Alcohol Use: No Hx Substance Use: No Preferred Language: Syriac Communication Ability: Effective Visual Impairment: Partially Limited Hearing Ability: Normal Guest House Manager Required: No Beliefs That Will Affect Care: None marital status: Current Living Situation: Spouse and Parent Current Living Situation Comment: lives with and mom (is primary caregiver for 90yr old mom) current occupational status: employed 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 How many Children do You have: 3 Feels Safe at Home: Yes Childhood Exposure to Second-Hand Smoke: Yes Diet: gluten free and vegan caffeine: Yes Dental Care, Regularly: Yes Physical Activity Frequency: Daily Seatbelt Use: always Sunscreen Use: Yes Do you think of yourself as: straight/heterosexual Gender Identity: Female Assistive Devices: None Allergies Allergies Allergy/AdvReac Type Severity Reaction Status Date / Time almond Allergy Severe TREE Verified 04/05/25 13:53 NUTS-ANAPHYLAXIS cashew nut Allergy Severe Anaphylaxis Verified 04/05/25 13:53 ciprofloxacin [Cipro] Allergy Severe Anaphylaxis Verified 04/05/25 13:53 gluten Allergy Severe celiac Verified 04/05/25 13:53 disease hydromorphone Allergy Severe Anaphylaxis Verified 04/05/25 13:53 Influenza Virus Vaccines Allergy Severe ANAPHYLAXIS Verified 04/05/25 13:53 sumatriptan [From Imitrex] Allergy Severe SOB, hives Verified 04/05/25 13:53 tree nut Allergy Severe tree Verified 04/05/25 13:53 nuts-anaphylaxis wheat Allergy Severe celiac Verified 04/05/25 13:53 disease and also get a topical rash propoxyphene Allergy Mild ? itchy Verified 04/05/25 13:53 codeine Allergy Unknown itchy once Verified 04/05/25 13:53 and has had since with no reaction ergotamine Allergy Unknown Anaphylaxis Verified 04/05/25 13:53 ketorolac [From Toradol] Allergy Unknown Hallucinati Verified 04/05/25 13:53 ng butorphanol AdvReac Unknown DELIRIUM Verified 04/05/25 13:53 Home Meds Home Medications Medication Instructions Recorded Confirmed vfitcfykucsn-wdpyftkl-hpzaiv tablet 1 tab PO DAILY 05/24/24 04/05/25 Previous Rx's Medication Instructions Recorded cholecalciferol (vitamin D3) 50 50 mcg PO DAILY #30 tabs 04/05/25 mcg (2,000 unit) tablet sulfamethoxazole 800 1 tab PO BID #6 tabs 05/03/25 mg-trimethoprim 160 mg tablet (Bactrim DS) clonazepam 1 mg tablet 1 mg PO QAM #30 tabs 05/10/25 diphth,pertus(acell),tetanus 2.5 0.5 ml IM ONCE #0.5 mL 05/22/25 Lf unit-8 mcg-5 Lf/0.5mL IM syringe (Boostrix Tdap) pneumoc 20-samra conj-dip cr(PF) 0.5 0.5 ml IM ONCE #0.5 mL 05/22/25 mL IM syringe (Prevnar 20 (PF)) varicella-zoster glycoE [id number] 0.5 ml IM ONCE #1 ea 05/22/25 adj(PF) 50 mcg/0.5 mL IM susp, kit (Shingrix (PF)) levothyroxine 100 mcg tablet 100 mcg PO QAM #30 tabs 06/10/25 epinephrine 0.3 mg/0.3 mL 0.3 mg (0.3 mL) IM UD PRN 06/11/25 injection, auto-injector anaphylaxis #2 ea sulfamethoxazole 800 1 tab PO BID #6 tabs 09/03/25 mg-trimethoprim 160 mg tablet (Bactrim DS) spironolactone 25 mg tablet See Rx Instructions PO BID #270 09/18/25 tabs Results & Data (ED) Vital Signs Vital Signs - 24 hr 09/19/25 12:25 09/19/25 13:48 09/19/25 15:03 Temperature 36.8 C Temperature Source Temporal Artery Scan Pulse Rate 93 H 70 Pulse Rate [Apical] 74 Pulse Rhythm [Apical] Regular Pulse Strength [Apical] Normal Respiratory Rate 16 20 Respiratory Effort / Characteristics Non-Labored Spontaneous Non-Labored Spontaneous Respiratory Depth Normal Normal Respiratory Pattern Regular Regular Blood Pressure 152/94 H Blood Pressure [Left Arm] 149/93 H Blood Pressure Mean 113 Blood Pressure Mean [Left Arm] 111 Pulse Oximetry 100 100 Oxygen Delivery Method Room Air Room Air Sepsis Recent Fever Within 48 Hours Yes Sepsis New/Unexplained Change in Mental Status No Sepsis Action Taken by Nursing No Action Required Home Medications Current Medication List: was personally reviewed by me Laboratory Data Attestation: I reviewed the patient's lab results. 09/19/25 13:25 09/19/25 13:25 Lab Results 09/19/25 09/19/25 Range/Units 13:25 13:35 WBC 8.35 (4.8-10.8) K/ul RBC 4.58 (4.20-5.40) M/uL Hgb 14.4 (12.0-16.0) g/dl Hct 42.7 (37.0-47.0) % MCV 93.2 (80.0-100.0) fL MCH 31.4 (25.0-34.0) pg MCHC 33.7 (32.0-36.0) g/dL RDW Std Deviation 41.9 (36.4-46.3) fL RDW Coeff of Dory 12.2 (11.5-14.5) % Plt Count 183 (130-400) K/uL MPV 10.9 (9.4-12.4) fL Immature Gran % (Auto) 0.4 % Neut % (Auto) 74.0 % Lymph % (Auto) 13.3 % Bowie % (Auto) 11.5 % Eos % (Auto) 0.4 % Baso % (Auto) 0.4 % Neut # (Auto) 6.19 (1.40-6.50) K/uL Lymph # (Auto) 1.11 L (1.20-3.40) K/uL Bowie # (Auto) 0.96 H (0.11-0.59) K/uL Eos # (Auto) 0.03 (0.00-0.50) K/uL Baso # (Auto) 0.03 (0.00-0.20) K/uL Immature Gran # (Auto) 0.03 (0.01-0.20) K/uL Sodium 139 (136-145) mmol/L Potassium 4.7 (3.5-5.1) mmol/L Chloride 102 (98-107) mmol/L Carbon Dioxide 30 (21-32) mmol/L Anion Gap 7 (3-11) BUN 25 H (6-23) mg/dl Creatinine 1.19 (0.6-1.2) mg/dl Est Cr Clr Drug Dosing 45.2 ml/min eGFR 50.43 BUN/Creatinine Ratio 21.0 H (10-20) Glucose 134 H (70-99(Fasting)) mg/dl Calcium 10.5 H (8.6-10.3) mg/dl Total Bilirubin 1.2 H (0.2-1.0) mg/dl AST 15 (13-39) U/L ALT 12 (7-52) U/L Alkaline Phosphatase 98 (34-104) U/L Total Protein 8.1 (6.0-8.3) gm/dl Albumin 4.3 (3.4-5.0) gm/dl Globulin 3.8 (2.5-4.0) gm/dl Albumin/Globulin Ratio 1.1 (0.9-2) Urine Color Yellow Urine Appearance Cloudy A (Clear) Urine pH 5.5 (4.5-7.5) Ur Specific Antler 1.006 (1.000-1.030) Urine Protein Trace H (Negative) Urine Glucose (UA) Negative (Negative) Urine Ketones Negative (Negative) Urine Blood 1+ H (Negative) Urine Nitrite Negative (Negative) Urine Bilirubin Negative (Negative) Urine Urobilinogen Negative (Negative) Ur Leukocyte Esterase 3+ H (Negative) Urine WBC (Auto) >50 H (0-5) /hpf Urine RBC (Auto) 0-2 (0-2) /hpf U Hyaline Cast (Auto) 3-5 H (0-2) /lpf U Epithel Cells (Auto) 0-2 (0-2) /hpf Urine Bacteria (Auto) None Seen (None Seen) Urine Comment Administered Medications Discontinued Medications Sodium Chloride (Nss) 1,000 mls @ 999 mls/hr IV .Q1H1M ONE Stop: 09/19/25 14:52 Last Infusion: 09/19/25 15:40 Dose: Infused Documented By: Admin: 09/19/25 14:00 Dose: 999 mls/hr Documented By: linwood Ceftriaxone Sodium (Rocephin) 1,000 mg in 50 mls @ 100 mls/hr IV NOW STA Stop: 09/19/25 14:23 Last Infusion: 09/19/25 14:38 Dose: Infused Documented By: linwood Admin: 09/19/25 13:59 Dose: 100 mls/hr Documented By: linwood Imaging Data Attestation: I personally reviewed and interpreted this imaging study as follows: Discharge Plan Visit Data Chief Complaint: Urinary Symptoms Stated Complaint: UTI, FEVER, FLANK PAIN, NAUSEA, ONE KIDNEY ED Provider: Malia Nicholson ED Midlevel Provider: Cathryn Betts Discharge Problem: Urinary tract infection, Pyelonephritis Patient Disposition: Admitted As Inpatient Condition: Fair Forms Stand Alone Forms: My [facility] Exhibition A Prescriptions Prescriptions: No Action sulfamethoxazole-trimethoprim [Bactrim DS] 800-160 mg tablet 1 tab PO BID Qty: 6 0RF clonazepam 1 mg tablet 1 mg PO QAM Qty: 30 5RF levothyroxine 100 mcg tablet 100 mcg PO QAM Qty: 30 3RF epinephrine 0.3 mg/0.3 mL auto-injector 0.3 mg IM UD PRN (Reason: anaphylaxis) Qty: 2 1RF sulfamethoxazole-trimethoprim [Bactrim DS] 800-160 mg tablet 1 tab PO BID Qty: 6 0RF Rx Instructions: Hold spironolactone while taking this medication. Resume spironolactone once bactrim therapy completed spironolactone 25 mg tablet See Rx Instructions PO BID Qty: 270 3RF Rx Instructions: 1 tab in the AM, 2 tabs at night orally twice a day; 25 mg orally take one tab in the morning and two tabs at night; cholecalciferol (vitamin D3) 50 mcg (2,000 unit) tablet 50 mcg PO DAILY Qty: 30 0RF Boostrix Tdap 2.5-8-5 Lf-mcg-Lf/0.5mL syringe 0.5 ml IM ONCE Qty: 0.5 0RF Prevnar 20 (PF) 0.5 mL syringe 0.5 ml IM ONCE Qty: 0.5 0RF Shingrix (PF) 50 mcg/0.5 mL suspension for reconstitution 0.5 ml IM ONCE Qty: 1 0RF wtgksovtfnsg-xcyyqxlg-crpoke Tablet 1 tab PO DAILY Patient Comments: when i think of it Referrals Referrals: Jeison Carrillo, DO [Primary Care Provider] -
[2025-09-19 13:48] LABS: Hematocrit (blood only) 42.7 % (37.0-47.0); Hemoglobin 14.4 g/dl (12.0-16.0); Immature Granulocytes # (auto) 0.03 K/uL (0.01-0.20); Immature Granulocytes % (auto) 0.4 %; Mean Corpuscular Hemoglobin 31.4 pg (25.0-34.0); Mean Corpuscular Volume 93.2 fL (80.0-100.0); Platelet Count 183 K/uL (130-400); RDW Standard Deviation 41.9 fL (36.4-46.3); Red Blood Count 4.58 M/uL (4.20-5.40); White Blood Count 8.35 K/ul (4.8-10.8)
[2025-09-19 13:50] LABS: Appearance Urine Cloudy (Clear); Bacteria Urine Automated None Seen (None Seen); Epithelial Cell Urine Auto 0-2 /hpf (0-2); Glucose Urine UA Negative (Negative); RBC Urine Automated 0-2 /hpf (0-2); WBC Urine Automated >50 /hpf (0-5)
[2025-09-19] MEDS: cefTRIAXone SODIUM 1,000 MG/50 ML BAG IV STA (13:59)
[2025-09-19] MEDS: SODIUM CHLORIDE 0.9% 1,000 ML IV ONE (14:00)
[2025-09-19 14:08] LABS: Alanine Aminotransferase 12.0 U/L (7-52); Albumin Globulin Ratio 1.1 (0.9-2); Albumin Level 4.3 gm/dl (3.4-5.0); Alkaline Phosphatase 98.0 U/L (34-104); Anion Gap 7.0 (3-11); Bilirubin,Total 1.2 mg/dl (0.2-1.0); Blood Urea Nitrogen 25.0 mg/dl (6-23); Calcium 10.5 mg/dl (8.6-10.3); Carbon Dioxide 30.0 mmol/L (21-32); Chloride 102.0 mmol/L (98-107); Creatinine Clr Calc Pharmacy 45.2 ml/min; Globulin 3.8 gm/dl (2.5-4.0); Glucose 134.0 mg/dl (70-99(Fasting)); Potassium 4.7 mmol/L (3.5-5.1); Sodium 139.0 mmol/L (136-145); Total Protein 8.1 gm/dl (6.0-8.3)
--- NOTE | 2025-09-19 15:47 | History & Physical Report ---
Date of Service September 19, 2025 Assessment & Plan (1) Pyelonephritis: (2) HTN (hypertension): (3) Hypothyroidism: (4) PTSD (post-traumatic stress disorder): (5) CKD stage 3a, GFR 45-59 ml/min: Plan Pyelonephritis in a 65 yo female with only one kidney Admit to medicine. WIllplace on rocephin. Obtained urine cultures prior to antibiotics but blood cultures were ordered after as ED had already given antibiotics. Patient is not showing signs of severe sepsis. CKD stage 3a will montior creaitine PTSD on daily oral lorzepam Hypothyroidism Resume home meds History of Present Illness Chief Complaint: UTI Primary Care Provider: Jeison Carrillo DO 65 yo female with a solitary kidney presents to the ED for an evaluation by her community pharmacist. Patient had a left nephrectomy. Patient is having right sided pain and has subjective fevers. Patient reports having tried unsuccessfully with 2 antibiotics which prompted her to come to the ED. Allergies Allergy/AdvReac Type Severity Reaction Status Date / Time almond Allergy Severe TREE Verified 04/05/25 13:53 NUTS-ANAPHYLAXIS cashew nut Allergy Severe Anaphylaxis Verified 04/05/25 13:53 ciprofloxacin [Cipro] Allergy Severe Anaphylaxis Verified 04/05/25 13:53 gluten Allergy Severe celiac Verified 04/05/25 13:53 disease hydromorphone Allergy Severe Anaphylaxis Verified 04/05/25 13:53 Influenza Virus Vaccines Allergy Severe ANAPHYLAXIS Verified 04/05/25 13:53 sumatriptan [From Imitrex] Allergy Severe SOB, hives Verified 04/05/25 13:53 tree nut Allergy Severe tree Verified 04/05/25 13:53 nuts-anaphylaxis wheat Allergy Severe celiac Verified 04/05/25 13:53 disease and also get a topical rash propoxyphene Allergy Mild ? itchy Verified 04/05/25 13:53 codeine Allergy Unknown itchy once Verified 04/05/25 13:53 and has had since with no reaction ergotamine Allergy Unknown Anaphylaxis Verified 04/05/25 13:53 ketorolac [From Toradol] Allergy Unknown Hallucinati Verified 04/05/25 13:53 ng butorphanol AdvReac Unknown DELIRIUM Verified 04/05/25 13:53 Home Medications Medication Instructions Recorded Confirmed Type oripyyfmgekw-bvwkibwc-lfrthm tablet 1 tab PO DAILY 05/24/24 04/05/25 History cholecalciferol (vitamin D3) 50 50 mcg PO DAILY #30 tabs 04/05/25 04/05/25 Rx mcg (2,000 unit) tablet sulfamethoxazole 800 1 tab PO BID #6 tabs 05/03/25 Rx mg-trimethoprim 160 mg tablet (Bactrim DS) clonazepam 1 mg tablet 1 mg PO QAM #30 tabs 05/10/25 Rx diphth,pertus(acell),tetanus 2.5 0.5 ml IM ONCE #0.5 mL 05/22/25 05/22/25 Rx Lf unit-8 mcg-5 Lf/0.5mL IM syringe (Boostrix Tdap) pneumoc 20-samra conj-dip cr(PF) 0.5 0.5 ml IM ONCE #0.5 mL 05/22/25 05/22/25 Rx mL IM syringe (Prevnar 20 (PF)) varicella-zoster glycoE [id number] 0.5 ml IM ONCE #1 ea 05/22/25 05/22/25 Rx adj(PF) 50 mcg/0.5 mL IM susp, kit (Shingrix (PF)) levothyroxine 100 mcg tablet 100 mcg PO QAM #30 tabs 06/10/25 Rx epinephrine 0.3 mg/0.3 mL 0.3 mg (0.3 mL) IM UD PRN 06/11/25 Rx injection, auto-injector anaphylaxis #2 ea sulfamethoxazole 800 1 tab PO BID #6 tabs 09/03/25 Rx mg-trimethoprim 160 mg tablet (Bactrim DS) spironolactone 25 mg tablet See Rx Instructions PO BID #270 09/18/25 Rx tabs Past Med/Surg History Problem List (Updated 09/19/25 @ 16:59 by Joshua Colón) Pyelonephritis (Acute) Urinary tract infection (Acute) Dysuria Vitamin D deficiency Abdominal pain Fractured tooth Dental fistula Facial abscess Infection of oral mucosa CKD stage 3a, GFR 45-59 ml/min Solitary kidney, acquired S/p nephrectomy Mastitis 02/2024 IBS (irritable bowel syndrome) Panic disorder PTSD (post-traumatic stress disorder) HTN (hypertension) Hypothyroidism Medical History Left renal mass Panic disorder controlled at current. History of posttraumatic stress disorder (PTSD) Migraines Nonspecific low blood pressure reading always runs a lower blood pressure per pt. History of hypertension History of mastitis 02/2024 - has resolved but is still having issues with discharge on occ/follows Dr. Carrillo. IBS (irritable bowel syndrome) Left renal mass History of eating disorder pt weighs self at home/prefers not to be weighed if possible but is okay with if needed. Does not want to know what weight is when weighed. Not active for decades. Hypothyroidism sometimes high and sometimes low. History of colon polyps Celiac disease (12/11/12) History of COVID-19 05/2022 Surgical History History of radical nephrectomy LEFT - June 08, 2024 - [facility] - Dr. Dunn History of laparoscopic cholecystectomy History of endoscopy (05/23/24) 05/23/24 [facility] - upcoming ERCP planned 07/2024. History of dilatation and curettage x5 History of colonoscopy 04/2023 Repeat 5 yrs History of esophagogastroduodenoscopy (EGD) History of wisdom tooth extraction Hx of breast reduction, elective Hx of tubal ligation Family History Grandmother (Maternal) Ovarian cancer Mother Myocardial infarction Other Family history not known due to adoption Social History Smoking Status: Never smoker Second Hand Exposure: No; Do You Dip or Chew Tobacco: No; Hx Alcohol Use: No Hx Substance Use: No Preferred Language: Upper Sorbian Communication Ability: Effective Visual Impairment: Partially Limited Hearing Ability: Normal Pharmacy Grad Intern Required: No Beliefs That Will Affect Care: None marital status: Current Living Situation: Spouse Current Living Situation Comment: lives with and mom (is primary caregiver for 90yr old mom) current occupational status: employed 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 How many Children do You have: 3 Other Information That Helps Us Care for You: No Feels Safe at Home: Yes Childhood Exposure to Second-Hand Smoke: Yes Diet: gluten free and vegan caffeine: Yes Dental Care, Regularly: Yes Physical Activity Frequency: Daily Seatbelt Use: always Sunscreen Use: Yes Do you think of yourself as: straight/heterosexual Gender Identity: Female Assistive Devices: Cane, Stair Lift and Walker Review of Systems Constitutional: + fever, + chills, + body aches, + fatig ue and + weakness Eyes: no blind spots and no discharge Ear, Nose, Mouth, Throat: no ear pain Respiratory: no cough Cardiovascular: no chest pain Gastrointestinal: + abdominal pain Genitourinary: as per Subjective / HPI Musculoskeletal: no back pain Integumentary: no acne Neurologic: no gait abnormality Psychiatric: no behavioral changes Endocrine: no fatigue Hematologic / Lymphatic: no easy bleeding Allergy / Immunological: no GI upset with certain foods Physical Exam Constitutional: WD/WN, vitals as above Eyes: PERRL, conjunctivae normal, anicteric sclerae ENMT: external ear and nose normal, oropharynx normal Neck: trachea midline, no thyromegaly Respiratory: normal respiratory effort, lungs clear to auscultation Cardiovascular: RRR, no murmur, no edema Gastrointestinal (Abdomen): normal bowel sounds, soft, nontender, no hepatosplenomegaly Musculoskeletal: no cyanosis or clubbing, extremities motor strength 5/5 Skin: no rashes, warm and dry Neurologic: PERRL, EOMI, accommodation nl, no face palsy, no dysarthria Psychiatric: A+Ox3, euthymic affect Lymphatic: no cervical or axillary lymphadenopathy Results & Data Results & Data Vital Signs (Past 12 Hours) Vital Signs Temp Pulse Pulse Resp BP BP Pulse Ox 09/19/25 15:03 70 09/19/25 13:48 74 20 149/93 H 100 09/19/25 12:25 36.8 C 93 H 16 152/94 H 100 O2 Del Method 09/19/25 15:03 09/19/25 13:48 Room Air 09/19/25 12:25 Room Air PG Care Time/CCT Total # of Minutes Spent Total Time Spent with Patient: Total time spent is greater than 50% in coordination of care (as documented) at patient's floor/unit and/or counseling patient: Coding Level of Care Code 00514 INT INP/OBS CARE 3/75MIN Diagnoses Pyelonephritis N12 HTN (hypertension) I10 Hypothyroidism E03.9 PTSD (post-traumatic stress disorder) F43.10 CKD stage 3a, GFR 45-59 ml/min N18.31
--- NOTE | 2025-09-19 16:44 | Ultrasound Report ---
RENAL ULTRASOUND: CLINICAL INDICATION: Right flank pain. COMPARISON: None. TECHNIQUE: Focused real-time grayscale ultrasound and color Doppler interrogation of the kidneys and urinary bladder was performed by the technologist and images were submitted for interpretation. FINDINGS: RIGHT KIDNEY: The right kidney measures 11.4 cm in length. No shadowing stones or hydronephrosis identified. The right kidney is echogenic. LEFT KIDNEY: The left kidney is surgically absent. URINARY BLADDER: Urinary bladder with wall thickening and mild luminal debris. IMPRESSION: Echogenic right kidney suggesting medical renal disease. No shadowing calculus or hydronephrosis is identified in the right kidney. Status post left nephrectomy. Urinary bladder with wall thickening and mild luminal debris. Cystitis could be a consideration. Electronically signed by Alek Maldonado 09-19-2025 4:44 PM
[2025-09-19] MEDS: ACETAMINOPHEN 325 MG TAB PO PRN (18:30)
[2025-09-19] MEDS: SPIRONOLACTONE 25 MG TAB PO SCH (20:22)
[2025-09-19] MEDS: ONDANSETRON 4 MG OD TAB PO PRN (20:22)
[2025-09-20] MEDS: MoRPHine SULFATE 4 MG/ML 1 ML CARP\\VIAL ONE ×2 (04:10→17:22)
[2025-09-20] MEDS: MoRPHine SULFATE 2 MG/ML CARP IV STA ×2 (04:10→17:23)
[2025-09-20] MEDS: LIDOCAINE 5% 1 PATCH TD STA (04:17)
[2025-09-20] MEDS: LEVOTHYROXINE SODIUM 100 MCG TABLET PO SCH (04:18)
[2025-09-20 08:04] LABS: Hematocrit (blood only) 39.6 % (37.0-47.0); Hemoglobin 12.9 g/dl (12.0-16.0); Mean Corpuscular Hemoglobin 30.4 pg (25.0-34.0); Mean Corpuscular Volume 93.4 fL (80.0-100.0); Platelet Count 155 K/uL (130-400); RDW Standard Deviation 42.2 fL (36.4-46.3); Red Blood Count 4.24 M/uL (4.20-5.40); White Blood Count 4.73 K/ul (4.8-10.8)
[2025-09-20 08:21] LABS: Anion Gap 6.0 (3-11); Blood Urea Nitrogen 22.0 mg/dl (6-23); Calcium 10.1 mg/dl (8.6-10.3); Carbon Dioxide 30.0 mmol/L (21-32); Chloride 107.0 mmol/L (98-107); Creatinine Clr Calc Pharmacy 44.8 ml/min; Glucose 97.0 mg/dl (70-99(Fasting)); Potassium 4.8 mmol/L (3.5-5.1); Sodium 143.0 mmol/L (136-145)
[2025-09-20] MEDS: CHOLECALCIFEROL 25 MCG (1000 UNITS) TAB PO SCH (09:36)
[2025-09-20] MEDS: SPIRONOLACTONE 25 MG TAB PO SCH (09:36)
[2025-09-20] MEDS: clonazePAM 1 MG TAB PO SCH (09:37)
[2025-09-20] MEDS: HEPARIN SOD 5,000 UNIT/0.5 ML VIAL SQ SCH (09:37)
[2025-09-20] MEDS: MoRPHine SULFATE 4 MG/ML 1 ML CARP\\VIAL IV STA (12:36)
[2025-09-20] MEDS: ACETAMINOPHEN 325 MG TAB PO SCH (13:33)
[2025-09-20] MEDS: cefTRIAXone SODIUM 1,000 MG/50 ML BAG IV SCH (13:34)
[2025-09-20] MEDS: REMOVE LIDODERM PATCH SCH (16:46)
--- NOTE | 2025-09-20 22:28 | Hospitalist Progress Note ---
Date of Service September 20, 2025 Assessment & Plan (1) Pyelonephritis: (2) HTN (hypertension): (3) Hypothyroidism: (4) PTSD (post-traumatic stress disorder): (5) CKD stage 3a, GFR 45-59 ml/min: Plan Pyelonephritis in a 65 yo female with only one kidney Admit to medicine. Continue o n rocephin. Obtained urine cultures prior to antibiotics: now growing e coli awaiting sensitivities. not ,uch clinical improvement today Patient is not showing signs of severe sepsis. CKD stage 3a will montior creatinine PTSD on daily oral lorzepam Hypothyroidism Resume home meds Admission and Anticipated Discharge Date Admission Date: September 19, 2025 Subjective Patient reports she continues to have pain in her right side Physical Exam Constitutional: WD/WN, vitals as above Eyes: PERRL, conjunctivae normal, anicteric sclerae ENMT: external ear and nose normal, oropharynx normal Neck: trachea midline, no thyromegaly Respiratory: normal respiratory effort, lungs clear to auscultation Cardiovascular: RRR, no murmur, no edema Gastrointestinal (Abdomen): normal bowel sounds, soft, nontender, no hepatosp lenomegaly Musculoskeletal: no cyanosis or clubbing, extremities motor strength 5/5 Skin: no rashes, warm and dry Neurologic: PERRL, EOMI, accommodation nl, no face palsy, no dysarthria Psychiatric: A+Ox3, euthymic affect Genitourinary: Right CVA tenderness Lymphatic: no cervical or axillary lymphadenopathy Results & Data Results & Data Vital Signs (Past 12 Hours) Vital Signs Temp Pulse Resp BP Pulse Ox O2 Del Method 09/20/25 14:59 36.6 C 62 16 148/80 H 98 Room Air PG Care Time/CCT Total # of Minutes Spent Total Time Spent with Patient: Total time spent is greater than 50% in coordination of care (as documented) at patient's floor/unit and/or counseling patient: Coding Level of Care Code 23223 SUB INP/OBS CARE 3/50MIN Diagnoses Pyelonephritis N12 HTN (hypertension) I10 Hypothyroidism E03.9 PTSD (post-traumatic stress disorder) F43.10 CKD stage 3a, GFR 45-59 ml/min N18.31
[2025-09-21] MEDS: MoRPHine SULFATE 2 MG/ML CARP IV PRN (05:28)
[2025-09-21] MEDS: MoRPHine SULFATE 4 MG/ML 1 ML CARP\\VIAL ONE ×3 (05:30→16:56)
[2025-09-21 06:58] LABS: Hematocrit (blood only) 40.1 % (37.0-47.0); Hemoglobin 13.8 g/dl (12.0-16.0); Mean Corpuscular Hemoglobin 32.1 pg (25.0-34.0); Mean Corpuscular Volume 93.3 fL (80.0-100.0); Platelet Count 171 K/uL (130-400); RDW Standard Deviation 41.3 fL (36.4-46.3); Red Blood Count 4.30 M/uL (4.20-5.40); White Blood Count 4.28 K/ul (4.8-10.8)
[2025-09-21 07:24] LABS: Anion Gap 6.0 (3-11); Blood Urea Nitrogen 21.0 mg/dl (6-23); Calcium 10.4 mg/dl (8.6-10.3); Carbon Dioxide 31.0 mmol/L (21-32); Chloride 104.0 mmol/L (98-107); Creatinine Clr Calc Pharmacy 42.0 ml/min; Glucose 93.0 mg/dl (70-99(Fasting)); Potassium 5.0 mmol/L (3.5-5.1); Sodium 141.0 mmol/L (136-145)
[2025-09-21] MEDS: ERTAPENEM 1000MG 1,000 MG/10 ML SYR IV SCH (11:13)
--- NOTE | 2025-09-21 23:44 | Hospitalist Progress Note ---
Date of Service September 21, 2025 Assessment & Plan (1) Pyelonephritis: (2) HTN (hypertension): (3) Hypothyroidism: (4) PTSD (post-traumatic stress disorder): (5) CKD stage 3a, GFR 45-59 ml/min: Plan Pyelonephritis in a 65 yo female with only one kidney Admit to medicine. Now growing ESBL, will switch to ertapenem. WIll monitor clinical progression. This likely explains why she was not improving. Obtained urine cultures prior to antibiotics: now growing e coli Patient is not showing signs of severe sepsis. Will likely need to stay here over the weekend. CKD stage 3a will montior creatinine PTSD on daily oral lorzepam Hypothyroidism Resume home meds Admission and Anticipated Discharge Date Admission Date: September 19, 2025 Subjective Patient reports no significant changes. Physical Exam Constitutional: WD/WN, vitals as above Eyes: PERRL, conjunctivae normal, anicteric sclerae ENMT: external ear and nose normal, oropharynx normal Neck: trachea midline, no thyromegaly Respiratory: normal respiratory effort, lungs clear to auscultation Cardiovascular: RRR, no murmur, no edema Gastrointestinal (Abdomen): normal bowel sounds, soft, nontender, no hepatosplenomegaly Musculoskeletal: no cyanosis or clubbing, extremities motor strength 5/5 Skin: no rashes, warm and dry Neurologic: PERRL, EOMI, accommodation nl, no face palsy, no dysarthria Psychiatric: A+Ox3, euthymic affect Lymphatic: no cervical or axillary lymphadenopathy Results & Data Results & Data Vital Signs (Past 12 Hours) Vital Signs Temp Pulse Resp BP Pulse Ox O2 Del Method 09/21/25 14:40 37 C 61 16 162/67 H 98 Room Air PG Care Time/CCT Total # of Minutes Spent Total Time Spent with Patient: Total time spent is greater than 50% in coordination of care (as documented) at patient's floor/unit and/or counseling patient: Coding Level of Care Code 35300 SUB INP/OBS CARE 3/50MIN Diagnoses Pyelonephritis N12 HTN (hypertension) I10 Hypothyroidism E03.9 PTSD (post-traumatic stress disorder) F43.10 CKD stage 3a, GFR 45-59 ml/min N18.31
[2025-09-22] MEDS: MoRPHine SULFATE 4 MG/ML 1 ML CARP\\VIAL ONE ×4 (04:20→18:20)
[2025-09-22 07:00] LABS: Hematocrit (blood only) 39.0 % (37.0-47.0); Hemoglobin 13.3 g/dl (12.0-16.0); Mean Corpuscular Hemoglobin 30.8 pg (25.0-34.0); Mean Corpuscular Volume 90.3 fL (80.0-100.0); Platelet Count 177 K/uL (130-400); RDW Standard Deviation 39.1 fL (36.4-46.3); Red Blood Count 4.32 M/uL (4.20-5.40); White Blood Count 4.66 K/ul (4.8-10.8)
[2025-09-22 07:47] LABS: Anion Gap 7.0 (3-11); Blood Urea Nitrogen 19.0 mg/dl (6-23); Calcium 10.4 mg/dl (8.6-10.3); Carbon Dioxide 31.0 mmol/L (21-32); Chloride 101.0 mmol/L (98-107); Creatinine Clr Calc Pharmacy 42.7 ml/min; Glucose 101.0 mg/dl (70-99(Fasting)); Potassium 4.6 mmol/L (3.5-5.1); Sodium 139.0 mmol/L (136-145)
--- NOTE | 2025-09-23 00:12 | Hospitalist Progress Note ---
Date of Service September 22, 2025 Assessment & Plan (1) Pyelonephritis: (2) HTN (hypertension): (3) Hypothyroidism: (4) PTSD (post-traumatic stress disorder): (5) CKD stage 3a, GFR 45-59 ml/min: Plan Pyelonephritis in a 65 yo female with only one kidney Admit to medicine. Now growing ESBL, will switch to ertapenem. WIll monitor clinical progression. This likely explains why she was not improving. Obtained urine cultures prior to antibiotics: now growing e coli. Had to switch to ertapenem day 1 is 09/21 Patient is not showing signs of severe sepsis. Will likely need to stay here over the weekend. Talked with case management to assess for MTU CKD stage 3a will montior creatinine PTSD on daily oral lorzepam Hypothyroidism Resume home meds Admission and Anticipated Discharge Date Admission Date: September 19, 2025 Subjective 64 yo female with some improvement as she is now tolerating her diet. Physical Exam Constitutional: WD/WN, vitals as above Eyes: PERRL, conjunctivae normal, anicteric sclerae ENMT: external ear and nose normal, oropharynx normal Neck: trachea midline, no thyromegaly Respiratory: normal respiratory effort, lungs clear to auscultation Cardiovascular: RRR, no murmur, no edema Skin: no rashes, warm and dry Psychiatric: A+Ox3, euthymic affect Lymphatic: no cervical or axillary lymphadenopathy Results & Data Results & Data Vital Signs (Past 12 Hours) Vital Signs Temp Pulse Resp BP BP Pulse Ox O2 Del Method 09/22/25 22:40 36.8 C 52 L 16 119/79 95 Room Air 09/22/25 15:40 36.5 C 55 L 16 138/77 99 Room Air PG Care Time/CCT Total # of Minutes Spent Total Time Spent with Patient: Total time spent is greater than 50% in coordination of care (as documented) at patient's floor/unit and/or counseling patient: Coding Level of Care Code 99606 SUB INP/OBS CARE 3/50MIN Diagnoses Pyelonephritis N12 HTN (hypertension) I10 Hypothyroidism E03.9 PTSD (post-traumatic stress disorder) F43.10 CKD stage 3a, GFR 45-59 ml/min N18.31
[2025-09-23] MEDS: MoRPHine SULFATE 4 MG/ML 1 ML CARP\\VIAL ONE (10:08)
[2025-09-23 14:50] VITALS: O2SAT 97
[2025-09-23 22:08] VITALS: TEMP 97.7
--- NOTE | 2025-09-23 22:35 | Hospitalist Progress Note ---
Date of Service September 23, 2025 Assessment & Plan (1) Pyelonephritis: (2) HTN (hypertension): (3) Hypothyroidism: (4) PTSD (post-traumatic stress disorder): (5) CKD stage 3a, GFR 45-59 ml/min: Plan Pyelonephritis in a 65 yo female with only one kidney Admit to medicine. Now growing ESBL, will switch to ertapenem. WIll monitor clinical progression. This likely explains why she was not improving. Obtained urine cultures prior to antibiotics: now growing e coli. Had to switch to ertapenem day 1 is 09/21 Patient is not showing signs of severe sepsis. Will likely need to stay here over the weekend. Talked with case management to assess for MTU. Plan is to discharge on Wednesday. Patient will complete 7 days of antibiotics CKD stage 3a will montior creatinine PTSD on daily oral lorzepam Hypothyroidism Resume home meds Admission and Anticipated Discharge Date Admission Date: September 19, 2025 Subjective Patient reports she is having more of an appetite and is having slightly less pain. Physical Exam Constitutional: WD/WN, vitals as above Eyes: PERRL, conjunctivae normal, anicteric sclerae Musculoskeletal: no cyanosis or clubbing, extremities motor strength 5/5 (CVA tenderness on right (decreased)) Skin: no rashes, warm and dry Psychiatric: A+Ox3, euthymic affect Lymphatic: no cervical or axillary lymphadenopathy Results & Data Results & Data Vital Signs (Past 12 Hours) Vital Signs Temp Pulse Resp BP Pulse Ox O2 Del Method 09/23/25 22:08 36.5 C 53 L 14 127/77 97 Room Air 09/23/25 14:49 36.7 C 53 L 14 132/80 97 Room Air PG Care Time/CCT Total # of Minutes Spent Total Time Spent with Patient: Total time spent is greater than 50% in coordination of care (as documented) at patient's floor/unit and/or counseling patient: Coding Level of Care Code 73884 SUB INP/OBS CARE 3/50MIN Diagnoses Pyelonephritis N12 HTN (hypertension) I10 Hypothyroidism E03.9 PTSD (post-traumatic stress disorder) F43.10 CKD stage 3a, GFR 45-59 ml/min N18.31
[2025-09-24 07:03] LABS: Anion Gap 9.0 (3-11); Calcium 11.0 mg/dl (8.6-10.3); Carbon Dioxide 28.0 mmol/L (21-32); Chloride 101.0 mmol/L (98-107); Potassium 5.2 mmol/L (3.5-5.1); Sodium 138.0 mmol/L (136-145)
[2025-09-24 07:09] LABS: Blood Urea Nitrogen 17.0 mg/dl (6-23); Creatinine Clr Calc Pharmacy 39.3 ml/min; Glucose 91.0 mg/dl (70-99(Fasting))
[2025-09-24 07:57] VITALS: RESP 16
[2025-09-24 08:59] LABS: Hematocrit (blood only) 46.5 % (37.0-47.0); Hemoglobin 15.4 g/dl (12.0-16.0); Mean Corpuscular Hemoglobin 30.2 pg (25.0-34.0); Mean Corpuscular Volume 91.2 fL (80.0-100.0); Platelet Count 237 K/uL (130-400); RDW Standard Deviation 40.1 fL (36.4-46.3); Red Blood Count 5.10 M/uL (4.20-5.40); White Blood Count 5.83 K/ul (4.8-10.8)
[2025-09-24 12:33] VITALS: BP 160/83; PULSE 74
--- NOTE | 2025-09-24 14:34 | Discharge Summary ---
Discharge Summary Date of Service September 24, 2025 Principal Dx & Hospital Course #1 = Principal Diagnosis (1) Pyelonephritis: (2) HTN (hypertension): (3) Hypothyroidism: (4) PTSD (post-traumatic stress disorder): (5) CKD stage 3a, GFR 45-59 ml/min: Plan Pyelonephritis in a 65 yo female with only one kidney Admit to medicine. Now growing ESBL, will switch to ertapenem. WIll monitor clinical progression. This likely explains why she was not improving. Obtained urine cultures prior to antibiotics: now growing e coli. Had to switch to ertapenem day 1 is 09/21 Patient is not showing signs of severe sepsis. Will likely need to stay here over the weekend. Talked with case management to assess for MTU. Plan is to discharge on Wednesday. Patient will complete 7 days of antibiotics CKD stage 3a will montior creatinine PTSD on daily oral lorzepam Hypothyroidism Resume home meds Admission HPI Per Admitting Provider 65 yo female with a solitary kidney presents to the ED for an evaluation by her power systems engineer. Patient had a left nephrectomy. Patient is having right sided pain and has subjective fevers. Patient reports having tried unsuccessfully with 2 antibiotics which prompted her to come to the ED. Discharge Plan Discharge Items Patient Disposition: Home - Self-Care Reason For Visit: COMPLICATED UTI Discharge Diagnosis: complicated UIT Condition on Discharge: Fair Activity: Resume your previous activity Non-emergency contact: Primary Care Provider Call non-emergency contact if: you have any medication questions Follow-up/Referrals: Jeison Carrillo, [Primary Care Provider] - 10/02/25 11:30 am Outside,Provider [Outside Practitioners] - 09/25/25 8:00 am (MTU APPT TOMORROW AT [facility] DAILY UNTIL THURSDAY 09/27. APPT TOMORROW AT 0800.) Diet: Regular Addtl Attending Provider Instructions: MTU tomorrow at 8:00 am You will be on antibiotics for 3 more days. Last dose will be . Pending Studies at Discharge: No Stand-Alone Forms: My [facility] [employer], Smoking Cessation Medications and DC Order Prescriptions: New ertapenem 1 gram recon soln 1 g IV DAILY 3 Days Qty: 3 0RF Continued clonazepam 1 mg tablet 1 mg PO QAM Qty: 30 5RF levothyroxine 100 mcg tablet 100 mcg PO QAM Qty: 30 3RF epinephrine 0.3 mg/0.3 mL auto-injector 0.3 mg IM UD PRN (Reason: anaphylaxis) Qty: 2 1RF spironolactone 25 mg tablet See Rx Instructions PO BID Qty: 270 3RF Rx Instructions: 1 tab in the AM, 2 tabs at night orally twice a day; 25 mg orally take one tab in the morning and two tabs at night; cholecalciferol (vitamin D3) 50 mcg (2,000 unit) tablet 50 mcg PO DAILY Qty: 30 0RF Boostrix Tdap 2.5-8-5 Lf-mcg-Lf/0.5mL syringe 0.5 ml IM ONCE Qty: 0.5 0RF Prevnar 20 (PF) 0.5 mL syringe 0.5 ml IM ONCE Qty: 0.5 0RF Shingrix (PF) 50 mcg/0.5 mL suspension for reconstitution 0.5 ml IM ONCE Qty: 1 0RF sfzaicaccoel-edzuqyzj-yrnqou Tablet 1 tab PO DAILY Patient Comments: when i think of it Discontinued sulfamethoxazole-trimethoprim [Bactrim DS] 800-160 mg tablet 1 tab PO BID Qty: 6 0RF sulfamethoxazole-trimethoprim [Bactrim DS] 800-160 mg tablet 1 tab PO BID Qty: 6 0RF Rx Instructions: Hold spironolactone while taking this medication. Resume spironolactone once bactrim therapy completed Discharge Orders: Discharge Order (Routine); Ordered 09/24/25 Ordered By: Justus Merino/Other Patient Handouts: Kidney Problems Admission Data Admit Date/Time: 09/19/25 15:38 Attending Provider: Justus Cooper Admit Provider: Justus Cooper Primary Care Provider: Jeison Carrillo Other Providers: Justus Cooper Other Interventions: Discharge Summary Assessment (RN) Last Done: 09/24/25 12:31 Hospital Stay Data Consultations 09/19/25 15:46 ED Decision to Admit Stat Diagnostic Imagining Performed 09/19/25 13:52 US Renal Bladder [US renal/blad retro comp] Stat Pending Results Patient Have Any Pending Studies at Discharge: No Discharge Instructions Given to Patient (Per Discharging Provider) MTU tomorrow at 8:00 am You will be on antibiotics for 3 more days. Last dose will be . Coding Diagnoses Pyelonephritis N12 HTN (hypertension) I10 Hypothyroidism E03.9 PTSD (post-traumatic stress disorder) F43.10 CKD stage 3a, GFR 45-59 ml/min N18.31
== END 2025-09-24 14:11 | disposition home or self-care (01) | DRG 690 ==
LOC: ED 12:19 → 3N 15:38 → INTOOBSV 15:38 → 3N 17:05